=== PATIENT | female | born 1995 | race Caucasian/White ===

== ENCOUNTER 2020-09-29 17:00 | Emergency (ER) | payer BC, OTHER ==
[~2020-09-29] VITALS: Ht 154.9 cm; Wt 68.0 kg
[2020-09-29 17:04] VITALS: BP 112/83
== END 2020-09-29 19:07 | disposition home or self-care (01) ==
LOC: ER 17:00
DX: U07.1 COVID-19 (principal)

== ENCOUNTER 2020-10-02 14:05 | Emergency (ER) | payer BC, OTHER ==
[~2020-10-02] VITALS: Ht 154.9 cm; Wt 68.0 kg
[2020-10-02 15:10] LABS: HEMOGLOBIN 14.8 gm/dL (12.0-15.0); WBC 4.2 thou/uL (4.0-11.0)
[2020-10-02 15:12] LABS: ABSOLUTE NEUTROPHILS 3.1 thou/uL (1.4-8.2); BASOPHILS 0.3 % (0.0-2.0); HEMATOCRIT 42.4 % (37.0-47.0); LYMPHOCYTES 16.3 % (24.0-44.0); MCHC 34.9 g/dL (28.0-37.0); MCV 88.7 fL (80.0-100.0); MONOCYTES 10.7 % (1.0-8.0); PLATELET COUNT 190 thou/uL (150-400); POLYS 72.7 % (36.0-66.0); RBC 4.78 mil/uL (4.20-5.00); RDW 13.3 % (10.5-14.5)
[2020-10-02 15:29] LABS: ANION GAP 13 mmol/L (7-16); BUN 9 mg/dL (7-18); CALCIUM 8.2 mg/dL (8.5-10.1); CHLORIDE 103 mmol/L (98-107); CO2 22 mmol/L (21-32); CREATININE 0.8 mg/dL (0.6-1.0); GLUCOSE 97 mg/dL (74-106); POTASSIUM 3.3 mmol/L (3.5-5.1); SODIUM 138 mmol/L (136-145)
[2020-10-02 15:39] LABS: ALBUMIN 3.4 g/dL (3.4-5.0); SGOT 46 U/L (15-37); SGPT 51 U/L (30-65); TOTAL BILIRUBIN 0.9 mg/dL (0.2-1.0); TOTAL PROTEIN 7.4 g/dL (6.4-8.2); TROPONIN-I <0.06 ng/mL (<0.06)
[2020-10-02] MEDS ORDERED: ZOFRAN ODT4 MG PO (19:21)
[2020-10-02] MEDS ORDERED: PREDNISONE 20 M20 MG PO (19:21)
[2020-10-02 19:44] VITALS: BP 103/65
== END 2020-10-02 19:55 | disposition home or self-care (01) ==
LOC: ER 14:05
PROVIDERS: Nurse Practitioner Family
DX: U07.1 COVID-19 (principal); J45.909 Unspecified asthma, uncomplicated